=== PATIENT | female | born 2000 | race Caucasian/White ===

== ENCOUNTER 2019-11-23 12:05 | Emergency (ER) | payer OTHER ==
[~2019-11-23] VITALS: Ht 162.6 cm; Wt 66.3 kg
[2019-11-23] MEDS ORDERED: NEXP1IMP SC (12:17)
[2019-11-23 13:36] LABS: BASO # 0.1 10^3/uL (0.0-0.2); BASO % 1.1 % (0.0-1.0); EOS # 0.2 10^3/uL (0.0-0.5); EOS % 2.1 % (0.0-3.0); HEMATOCRIT 41.9 % (36.0-47.0); HEMOGLOBIN 14.4 g/dl (12.0-15.5); LYMPH # 1.8 10^3/uL (1.5-5.0); LYMPH % 21.5 % (24.0-44.0); MEAN CORPUSCULAR HGB CONC 34.4 g/dl (32.0-36.5); MEAN CORPUSCULAR VOLUME 99.1 fl (80.0-96.0); MONO # 0.7 10^3/uL (0.0-0.8); MONO % 7.8 % (0.0-5.0); NEUTROPHILS # 5.7 10^3/uL (1.5-8.5); NEUTROPHILS % 66.7 % (36.0-66.0); PLATELET COUNT, AUTOMATED 338 10^3/uL (150-450); RED BLOOD COUNT 4.23 10^6/uL (4.00-5.40); WHITE BLOOD COUNT 8.5 10^3/uL (4.0-10.0)
[2019-11-23 14:06] LABS: ALBUMIN 3.8 GM/DL (3.2-5.2); ALT/SGPT 25 U/L (12-78); BILIRUBIN,DIRECT < 0.1 MG/DL (0.0-0.2); BILIRUBIN,TOTAL 0.3 MG/DL (0.2-1.0); BLOOD UREA NITROGEN 9 MG/DL (7-18); CALCIUM LEVEL 8.8 MG/DL (8.5-10.1); CARBON DIOXIDE LEVEL 28 MEQ/L (21-32); CHLORIDE LEVEL 106 MEQ/L (98-107); CK-MB VALUE MASS < 1.0 NG/ML (<3.6); CPK CREATINE PHOSPHOKINASE 53 U/L (26-192); CREATININE FOR GFR 0.63 MG/DL (0.55-1.30); FREE T4 1.01 NG/DL (0.76-1.46); GLOMERULAR FILTRATION RATE > 60.0 (>60); GLUCOSE, FASTING 85 MG/DL (70-100); LIPASE 100 U/L (73-393); MB/CK RELATIVE INDEX 1.89 (< OR =4); POTASSIUM SERUM 4.4 MEQ/L (3.5-5.1); SODIUM LEVEL 139 MEQ/L (136-145); TROPONIN I < 0.02 NG/ML (< 0.10)
[2019-11-23 15:34] VITALS: BP 129/80
--- NOTE | 2019-11-24 07:08 | REP ---
REASON: Pelvic pain and bloating. PRIORS: None. Transvesical and transvaginal imaging was obtained. Uterus measures 7.9 x 2 x 4.7 cm. The endometrial echo complex is smooth and unremarkable appearing, measuring between 3 and 4 mm in its greatest thickness. Right ovary measures 3.1 x 2.1 x 2.8 cm and is within normal limits with and RI of 0.59. The left ovary measures 4.7 x 4 x 4.7 cm. Within the left ovary, there is a complex mixed echo structure, which measures 4.2 x 3.9 x 4 cm. The left ovarian RI is 0.65. The right ovarian volume calculation is 9.5 mL and the left is 46.2 mL, consistent with ovarian enlargement. There is a trace of free fluid in the cul-de-sac. Doppler of each ovary shows color flow. Urinary bladder measures 6 x 4 x 7 cm. IMPRESSION: 1. Although the left ovarian volume calculation is increased as described above, it appears as though as if the technologist included the cystic structure in at least part of that measurement and I suspect the actual ovarian measurement is much smaller with the complex structure seen within the left ovary representing a complex hemorrhagic cyst. Doppler of each ovary does show blood flow within the ovary proper. I have discussed this with the technologist who oversaw the exam, which was performed by someone else, and the technologist agrees with me that the measurement of the left ovary included the hemorrhagic cystic structure and she is recalculating that actual ovarian measurement to render a normal ovarian size. Electronically Signed by Tye Schmitt DO 11/24/2019 09:01 A
--- NOTE | 2019-11-24 11:31 | ED PDOC ---
Post-Departure Follow-Up dr koch faxed formal report of pelvic us for fu Emmanuelle Dee MD Nov 24, 2019 11:31
--- NOTE | 2019-11-24 16:36 | ECGEPIP ---
[facility] - ED Test Date: 2019-11-23 Pat Name: LORENZO NICHOLS Department: Room: - Gender: Female Internal Medicine Physician: [facility] : 2000 Requested By: ITALIA Gordon PA-C Order Number: [id number] Reading MD: Haley El Measurements Intervals [place] Rate: 68 P: 57 HI: 154 QRS: 53 QRSD: 85 T: 36 QT: 396 QTc: 421 Interpretive Statements SINUS RHYTHM WITH MARKED SINUS ARRHYTHMIA POSSIBLE RIGHT VENTRICULAR CONDUCTION DELAY NO PRIOR Electronically Signed on 11-24-2019 16:36:21 EDT by Haley El
== END 2019-11-23 15:38 | disposition home or self-care (01) ==
LOC: M ED 12:05
DX: N83.202 Unspecified ovarian cyst, left side (principal); I73.00 Raynaud's syndrome without gangrene

== ENCOUNTER → 2019-12-08 | Outpatient (CLI) | payer OTHER ==
[~2019-12-08] MED LIST: NEXP1IMP SC
== END ==
LOC: M WHC 15:07
PROVIDERS: ATTEND Obstetrics & Gynecology
DX: N83.202 Unspecified ovarian cyst, left side (principal)

== ENCOUNTER → 2019-12-16 | Outpatient (CLI) | payer OTHER ==
--- NOTE | 2019-12-17 02:24 | REP ---
Clinical: Follow up left-sided ovarian cyst. Comparison: 11/23/2019 . Technique: Transabdominal pelvic ultrasound with color evaluation of the ovaries. Findings: Bladder is unremarkable and measures 8.7 x 5.9 x 8.4 cm . Normal anteverted uterus measures 7.4 x 2.6 x 4.9 cm . The endometrial complex measures 3.6 mm thickness. No discrete uterine or endometrial abnormalities are appreciated. Bilateral ovaries are normal in appearance and color flow without evidence for torsion. Right ovary measures 2.6 x 1.6 x 2.4 cm ; Left ovary measures 3.4 x 1.5 x 3.6 cm. Previously noted left ovarian cyst has resolved. No pelvic fluid or adnexal mass lesion . Impression: 1. Normal pelvic ultrasound. Previous left ovarian cyst resolved.
== END ==
LOC: M WHC 13:25
PROVIDERS: ATTEND Obstetrics & Gynecology
DX: N83.202 Unspecified ovarian cyst, left side (principal)

== ENCOUNTER → 2020-05-09 | Outpatient (CLI) | payer OTHER ==
--- NOTE | 2020-05-11 15:40 | REP ---
PELVIC ULTRASOUND: 05/09/20. CLINICAL: Abdominopelvic pain and bloating. TECHNIQUE: Transabdominal pelvic ultrasound followed by transvaginal examination for better evaluation of the endometrium and adnexa with color Doppler evaluation of the ovaries. FINDINGS: The bladder is under distended but growly normal in appearance and currently measures 6.3 x 1.9 x 3.2cm. Normal anteverted uterus measures 7.4 x 2.6 x 4.4cm. The endometrial complex measures 2.0mm thickness. No discrete uterine or endometrial abnormality identified. Bilateral ovaries are normal in appearance and vascularity without torsion. Right ovary measures 2.9 x 2.4 x 2.5cm (RI 0.63). Left ovary measures 2.3 x 1.8 x 1.6cm (Venous flow detected). No pelvic fluid or adnexal mass lesion. IMPRESSION: Normal pelvic ultrasound. [facility]
--- NOTE | 2020-05-18 13:20 | REP ---
COMPLETE ABDOMINAL ULTRASOUND: 05/09/20. CLINICAL: Abdominal pain and bloating. TECHNIQUE: Real time espinosa scale and color evaluation using curved array transducer. FINDINGS: The liver, spleen, and pancreas are normal in contour, size, echogenicity and overall appearance. No focal hepatic, splenic or pancreatic lesions are identified. The gallbladder is normal and without gallstones, wall thickening or pericholecystic fluid. No biliary ductal dilatation is appreciated and the common bile duct measures 2.6mm diameter. The bilateral kidneys are normal in reniform shape without hydronephrosis. The right kidney measures 10.4 x 4.7 x 4.4cm. The left kidney measures 10.3 x 5.0 x 4.9cm. No ascites. The visualized portions of the abdominal aorta appear normal. IMPRESSION: 1. Normal complete abdominal ultrasound. [facility]
== END ==
LOC: M RAD 07:21
PROVIDERS: ATTEND Physician Assistant Medical
DX: R14.0 Abdominal distension (gaseous) (principal)